=== PATIENT | female | born 1995 | race Caucasian/White ===

== ENCOUNTER 2019-12-19 07:44 | Outpatient (CLI) | payer BC, SELFPAY ==
--- NOTE | 2019-12-19 07:58 | US_ITS ---
WS: [id number] THYROID ULTRASOUND (TI-RADS CRITERIA) History: Thyrotoxicosis, multiple thyroid nodules.. Technique: Ultrasound examination of the thyroid and adjacent soft tissues is performed. FINDINGS: RIGHT thyroid lobe: 6.3 x 1.5 x 2.6 cm. LEFT thyroid lobe: 5.6 x 1.7 x 2.1 cm. Isthmus: 0.2 cm. Estimated total number of nodules greater than or equal to 1 cm: 0 Number of spongiform nodules greater than or equal to 2 cm not described below (TR1): 0 Number of mixed cystic and solid nodules greater than or equal to 1.5 cm not described below (TR2): 0 Mildly heterogeneous thyroid lobes with mild enlargement. There are several tiny colloid cysts. US/US thyroid 33995 Impression: No suspicious thyroid nodules. Mild enlargement. Recommendation:No FNA or follow-up.
== END 2019-12-19 07:45 | disposition home or self-care (01) ==
LOC: RAD 07:53
PROVIDERS: PCP Family Medicine; Visit Provider Nurse Practitioner Family
DX: E04.2 Nontoxic multinodular goiter (principal); E05.90 Thyrotoxicosis, unspecified without thyrotoxic crisis or storm
CPT/HCPCS: 76536

== ENCOUNTER → 2019-12-25 15:47 | Outpatient (BNVA) | payer BC, SELFPAY | PROVIDERS: PCP Family Medicine; Visit Provider Internal Medicine | DX: E04.1 Nontoxic single thyroid nodule (principal); R13.10 Dysphagia, unspecified; R94.6 Abnormal results of thyroid function studies | CPT/HCPCS: 99204 ==

== ENCOUNTER 2019-12-25 16:40 | Outpatient (CLI) | payer BC, SELFPAY ==
[2019-12-25 18:03] LABS: Thyroid Stimulating Hormone 0.31 uIU/mL (0.27-4.20)
[2019-12-27 12:51] LABS: T3 Total 131 ng/dL (76-181)
[2019-12-27 15:51] LABS: Thyroid Peroxidase Antobodies 1 IU/mL (<9)
== END 2019-12-25 16:41 | disposition home or self-care (01) ==
LOC: LAB 16:42
PROVIDERS: PCP Family Medicine; Visit Provider Internal Medicine
DX: E04.1 Nontoxic single thyroid nodule (principal); R94.6 Abnormal results of thyroid function studies
CPT/HCPCS: 83516; 84439; 84443; 84480; 86376

== ENCOUNTER 2021-03-23 17:05 | Outpatient (CLI) | payer BC, SELFPAY ==
[2021-03-23 18:25] LABS: Thyroid Stimulating Hormone 0.32 uIU/mL (0.27-4.20)
[2021-03-23 19:20] LABS: Free T4 Free Thyroxine 1.32 ng/dL (0.82-1.77)
== END 2021-03-23 17:06 | disposition home or self-care (01) ==
LOC: LAB 17:06
PROVIDERS: PCP Family Medicine; Visit Provider Internal Medicine
DX: E04.1 Nontoxic single thyroid nodule (principal); E04.9 Nontoxic goiter, unspecified; R13.10 Dysphagia, unspecified; R94.6 Abnormal results of thyroid function studies
CPT/HCPCS: 84439; 84443

== ENCOUNTER 2021-04-30 12:46 | Outpatient (CLI) | payer BC, SELFPAY ==
--- NOTE | 2021-04-30 12:45 | FL_ITS ---
WS: [id number] MODIFIED BARIUM SWALLOW HISTORY: Difficulty swallowing. FLUOROSCOPY TIME: 2.5 minutes. Modified barium swallow was performed by the speech pathologist. Fluoroscopy was provided with the pa tient in a lateral projection. Multiple food consistencies were provided. Patient swallowed all food consistencies without difficulty. No aspiration or laryngeal penetration. Barium tablet was swallowed without difficulty. FL/FL barium swallow modifd [id number] IMPRESSION: Normal swallowing examination. Please see speech therapist report also for recommendations.
== END 2021-04-30 12:47 | disposition home or self-care (01) ==
LOC: RAD 12:49
PROVIDERS: PCP Family Medicine; Visit Provider Internal Medicine
DX: R13.10 Dysphagia, unspecified (principal); E04.9 Nontoxic goiter, unspecified; R94.6 Abnormal results of thyroid function studies
CPT/HCPCS: 74230; 92611

== ENCOUNTER 2021-06-01 09:48 | Outpatient (CLI) | payer BC, SELFPAY ==
--- NOTE | 2021-06-01 09:55 | CT_ITS ---
WS: [id number] CT neck w con* [id number] REASON FOR EXAM: goiter, checking for changes IV CONTRAST ADMINISTERED: 95 mL of Omnipaque 300. TOTAL EXAM DLP: 297.[address] scans at [facility] use at least one of these dose optimization techniques: automat ed exposure control; mA and/or kV adjustment per patient size (includes targeted exams where dose is matched to clinical indication); or iterative reconstruction. FINDINGS: Normal cervical spine. Normal salivary glands. Multiple small nodes in the anterior and posterior triangle of the neck maximum short diameter of lar gest node 5 mm. Thyroid gland overall is somewhat enlarged. Inhomogeneous attenuation. Several small hypodensities bi laterally. CT/CT neck w con* [id number] IMPRESSION: Small lymph nodes unlikely significant. Stable enlarged thyroid gland. Patient had prior ultrasounds of the thyroid gland in 2019 and 2019. It would a ppear the CT findings are the same as the previous ultrasound findings. There was an unenhanced CT scan of the cervical spine in 2018 which demonstrate d a dense enlarged thyroid gland essentially unchanged on the current enhanced study. To avoid additional radiation exposure 24-year-old patient, and to compare to e stablished baseline, recommend any required follow-up study of the thyroid be done with ultrasound.
[2021-06-01] MEDS: iohexol 300 mg/mL 100 mL Btl IV (10:33)
== END 2021-06-01 09:49 | disposition home or self-care (01) ==
PROVIDERS: PCP Family Medicine; Visit Provider Internal Medicine
DX: E04.9 Nontoxic goiter, unspecified (principal); R13.10 Dysphagia, unspecified; R94.6 Abnormal results of thyroid function studies
CPT/HCPCS: 70491

== ENCOUNTER 2021-08-16 10:56 | Emergency (ER) | payer BC, SELFPAY ==
[2021-08-16 11:02] VITALS: BP 121/76; PULSE 112; RESP 16; TEMP 36.5; O2SAT 98; BMI 27.1
--- NOTE | 2021-08-16 11:15 | ED_ITS ---
HPI - Female Genitourinary General: Chief complaint: Urogenital-Female Stated complaint: cysts Time Seen by Provider: 08/16/21 11:08 History of Present Illness: 26-year-old presents due to labial pain. Has history of Bartholin gland cyst and states this feels the same. This started yesterday. Previously was told that if she gets another cyst to present for surgical excision of the entire Bartholin gland. Denies any abdominal pain or urethral discharge. Denies dysuria fevers or chills. Date of Last Menstrual Period: 11/28/19 Review of Systems Narrative: - CONSTITUTIONAL: Denies weight loss, fever and chills. - HEENT: Denies changes in vision and hearing. - RESPIRATORY: Denies SOB and cough. - CV: Denies palpitations and CP. - GI: Denies abdominal pain, nausea, vomiting and diarrhea. - : As above - MSK: Denies myalgia and joint pain. - SKIN: Denies rash and pruritus. - NEUROLOGICAL: Denies headache, weakness, numbness and syncope. - PSYCHIATRIC: Denies suicidal ideation [facility] ED PFSH: Medical History (Updated 08/16/21 @ 11:46 by Ace Marinelli MD) delivery delivered Depression Surgical History (Updated 06/26/21 @ 15:08 by Daija Gray RN) H/O tubal ligation History of elbow surgery Family History (Updated 06/26/21 @ 15:10 by Daija Gray RN) Father Myocardial infarction Grandfather Stroke maternal Diabetes maternal Grandmother Diabetes maternal Lupus maternal Hyperlipidemia maternal Hypertension maternal Denies family history of Colon cancer Ovarian cancer Clotting disorder Breast cancer Anesthesia complication Bleeding disorder Uterine cancer Thyroid condition Social History (Updated 06/26/21 @ 15:10 by Daija Gray RN) Alcohol intake: never Female Reproductive History: Date of last menstrual period: 11/28/19 Physical Exam Narrative: EXAM NARRATIVE: - GENERAL: Alert and oriented x 3. No acute distress. Well-nourished. - EYES: EOMI. Anicteric. - HENT: Atraumatic, no C-spine tenderness. Moist mucous membranes. No scleral icterus. No cervical lymphadenopathy. - LUNGS: Clear to auscultation bilaterally. No accessory muscle use. Equal lung sounds bilaterally. No respiratory distress. - CARDIOVASCULAR: Regular rate and rhythm. No murmur. No JVD. - ABDOMEN: Soft, non-tender and non-distended. Negative CVA tenderness bilaterally, no rebound or guarding, negative Aguayo sign. No palpable masses. -: Large, 5 cm left Bartholin gland cyst with induration and fluctuance. - EXTREMITIES: No edema. Non-tender. - SKIN: No rashes or lesions. Warm. - NEUROLOGIC: No meningismus or focal neurological deficits. CN II-XII grossly intact. - PSYCHIATRIC: Cooperative. Appropriate mood and affect. Procedures Abscess I/D Site: bartholin's gland Side (if applicable): left Local Anesthetic: lidocaine 1% Amount of anesthesia used (mL): 5 Technique: incised with #11 blade Packing used?: none Complications: pain Course Vital Signs: Vital signs: Vital Signs Temperature 97.7 F 08/16/21 11:02 Pulse Rate 112 H 08/16/21 11:02 Respiratory Rate 16 08/16/21 11:02 Blood Pressure 121/76 08/16/21 11:02 Pulse Oximetry 98 08/16/21 11:02 MDM - Female Medical Decision Making 26-year-old presents due to pelvic pain from left Bartholin gland cyst. Discussed with ELECTRONICS ENGINEER on-call and at this time to recommend incision in the ER and outpatient antibiotics and follow-up but no surgical incision of the entire cyst. I&D performed at bedside. I do not have Word catheter available so attempted to create elliptical incision. Will place on Bactrim. At this time I believe patient would be safe for discharge and outpatient follow-up. Return precautions provided. Plan was reviewed with the patient who expressed understanding. Questions answered. Patient will follow up with ELECTRONICS ENGINEER.. Patient discharged in stable condition. Discharge Plan Discharge Patient Disposition: Home Clinical Impression: Abscess of Bartholin's gland Condition: Stable Prescriptions: New hydrocodone-acetaminophen 5-325 mg tablet 1 tab PO Q8H PRN (Reason: pain) 3 Days Qty: 9 0RF Bactrim DS 800-160 mg tablet 1 tab PO BID 7 Days Qty: 14 0RF Discharge Orders: Discharge ED (Routine); Ordered 08/16/21 Ordered By: Ace Marinelli Referrals: Mike Alejandre MD [Physician] - 1-3 days Gil,ALEXANDER Hernandez [Primary Care Provider] - Patient Instructions: Bartholin's Abscess, Opioid Safety Coding Level of Care Code ED Anesthesiology Physician Assistant for Darrell Hale
== END 2021-08-16 12:07 | disposition home or self-care (01) ==
PROVIDERS: Emergency Provider Emergency Medicine; PCP Nurse Practitioner Family
DX: N75.1 Abscess of Bartholin's gland (principal)
CPT/HCPCS: 56420; 99283

== ENCOUNTER → 2021-09-04 15:02 | Outpatient (BNVA) | payer BC, SELFPAY | PROVIDERS: PCP Nurse Practitioner Family; Visit Provider Obstetrics & Gynecology | DX: N75.0 Cyst of Bartholin's gland (principal) | CPT/HCPCS: 87070; 87077; 87184; 87205 ==

== ENCOUNTER → 2021-09-08 08:33 | Outpatient (BNVA) | payer BC, SELFPAY | PROVIDERS: PCP Nurse Practitioner Family; Visit Provider Obstetrics & Gynecology | DX: Z01.812 Encounter for preprocedural laboratory examination (principal); N75.1 Abscess of Bartholin's gland; N75.0 Cyst of Bartholin's gland | CPT/HCPCS: 80053; 81000; 81025; 85025; 86850; 86900 ==

== ENCOUNTER 2021-09-10 13:00 | Day surgery (SDC) | payer BC, SELFPAY ==
[2021-09-08 09:52] VITALS: BMI 27.7
--- NOTE | 2021-09-08 10:16 | ANES.PREANE2 ---
Pre-Anesthetic Assessment Height/Weight: Height 1.68 m Weight 78.018 kg Operation Date: 09/10/21 15:15 Proposed Procedures p Excision of bartholins gland 24762,N75.1(Not Applicable) - Mike Alejandre MD Familial anesthetic complications: None Was Beta Prosper taken within 24 hours: N/A Was Clonidine taken within 24 hours: N/A Social No alcohol and No tobacco Exam alert, oriented x 3, clear to auscultation bilaterally and regular rate & rhythm Airway Submandibular: within normal limits Cervical ROM: within normal limits Mallampati: Class II Dentition: chipped and full Anesthetic Plan ASA status: 1 Anesthesia: General Medications/Allergies Home Medications Medication Instructions Recorded Confirmed Last Taken Type No Known Home Medications 09/04/21 09/08/21 Unknown History Allergies Allergy/AdvReac Type Severity Reaction Status Date / Time amoxicillin Allergy ALGY-Rash Verified 09/08/21 08:07 [facility] Anesthesia Medical History (Updated 09/08/21 @ 08:34 by Mike Alejandre MD) delivery delivered Depression Surgical History (Updated 09/06/21 @ 17:42 by Lauren Aguila MD) H/O section x2 H/O tubal ligation History of elbow surgery Family History Father Myocardial infarction Grandfather Stroke maternal Diabetes maternal Grandmother Diabetes maternal Lupus maternal Hyperlipidemia maternal Hypertension maternal Denies family history of Colon cancer Ovarian cancer Clotting disorder Breast cancer Anesthesia complication Bleeding disorder Uterine cancer Thyroid condition Social History Alcohol intake: never Female Reproductive History Date of last menstrual period: 08/02/21 Data Anesthesia Cardiac Studies: No Data to Display
[2021-09-10] VITALS (10 sets, daily range): BP systolic 95–129; BP diastolic 55–86; PULSE 70–120; RESP 12–18; TEMP 36.1–36.7; O2SAT 97–100
[2021-09-10 13:33] LABS: OR HCG Qualitative Urine Negative (Negative)
[2021-09-10] MEDS: scopolamine 1.5 Patch 1 PATCH TRANSDERMA (13:37)
[2021-09-10] MEDS: sodium chloride 0.9% 1,000 ML 30 ML IV (14:01)
--- NOTE | 2021-09-10 14:28 | P.ANESUD_ITS ---
Pre-Anesthetic Update Pre-Anesthetic Assessment: Date of Surgery/Procedure: 09/10/21 Preop Alea gnosis: Left Bartholin gland cyst Proposed Procedure: Operation Date: 09/10/21 14:45 Proposed Procedures p Excision of bartholins gland 64669,N75.1(Not Applicable) - Mike Alejandre MD Any changes to Pre-Anesthetic Assessment?: No Last Intake: Intake Last Liquid Date 09/09/21 Last Liquid Time 17:30 Last Solid Date 09/10/21 Last Solid Time 17:30 Vitals: Temperature 98.1 F 09/10/21 13:20 Temperature Source Temporal Artery S can 09/10/21 13:20 Pulse Rate 76 09/10/21 13:20 Respiratory Rate 18 09/10/21 13:20 Blood Pressure 105/72 09/10/21 13:20 Blood Pressure Gilma n 83 09/10/21 13:20 Pulse Oximetry 98 09/10/21 13:20 Oxygen Delivery Me thod 09/10/21 13:25 Exam: Pre-Anes Outpt Exam: alert, oriented x 3, clear to auscultation bilaterally and regular rate & rhythm Cardiac Studies: No Data to Display
[2021-09-10] MEDS: vancomycin 1,000 MG in sodium chloride 0.9% 250 ML 250 MG IV (15:07)
--- NOTE | 2021-09-10 15:29 | W.PM.OPSUD ---
Surgery/Procedure H&P Update DATE OF PROCEDURE: September 10, 2021 DATE H&P PERFORMED: 09/08/21 H&P UPDATE INFORMATION: I have reviewed H&P completed within last 30 days, I have examined patient prior to procedure and No changes to prior documentation PREOP DIAGNOSIS: Left Bartholin gland cyst PLANNED PROCEDURE: Operation Date: 09/10/21 14:45 Proposed Procedures p Excision of bartholins gland 34238,N75.1(Not Applicable) - Mike Alejandre MD
--- NOTE | 2021-09-10 16:36 | PM.OP ---
Operative Report Date of procedure: September 10, 2021 Pre-op diagnosis: Preop Diagnosis Left Bartholin gland cyst Procedure done: Left Bartholin gland excision Specimens removed/disposition: Left Bartholin gland Surgeon: Mike Alejandre MD Estimated blood loss (mL): 50 Complications: None Brief History: Mrs. Lindsey 26-year-old female with a history of recurrent left Bartholin gland cyst and abscess over 4 times.. Procedure: After informed consent, the patient was taken to the operating room where general anesthesia was administered. The patient was placed in dorsal lithothomy position. She was examined under anesthesia and found to have a normal uterus with normal adnexa. After a bimanual examination to determine the extent of the small cyst. She was then prep and draped in normal sterile fashion. The labia were retracted with the Lone Start retractor and the introitus of the Vagina was exposed. An incision was made over the mucosa of the vagina at its junction with the introitus down to the wall of the gland on the left side. The wall of the gland was incised and the content of the cyst was evacuated. A culture was taken. The pearson of the cyst were grasped with Allis clamps. The wall of the cyst were sutured with interrupted 3-0 Vicril to the skin of introitus laterally and to the vaginal of mucosa medially. The patient tolerated the procedure well and instruments and laps count was correct times two.
--- NOTE | 2021-09-10 16:46 | PM.PACU ---
Documented by User: Stevie Curry CRNA 09/10/21 16:46 PACU note Narrative: VSS, Good respiratory effort, report to CHOREOGRAPHY DIRECTOR Exam: awake
[2021-09-10] MEDS: meperidine 50 mg/mL INJ 12.5 MG IVP (16:52)
--- NOTE | 2021-09-10 17:37 | ANE.PACU2 ---
Inpatient post-anesthesia follow up: Airway intact: Yes Vital signs: Temperature 97.0 F Pulse Rate 82 Respiratory Rate 18 Blood Pressure 114/79 Pulse Oximetry 98 Oxygen Delivery Me thod Room Air Oxygen Flow Rate 6 Fraction of Inspir ed Oxygen Hydration adequate: Yes Nausea and vomiting: No Pain level: 2 Mental status: Baseline
== END 2021-09-10 18:00 | disposition home or self-care (01) ==
PROVIDERS: PCP Nurse Practitioner Family; Visit Provider Obstetrics & Gynecology
PROC: (CPT 56740; principal; 2021-09-10 14:35)
DX: N75.0 Cyst of Bartholin's gland (principal)
CPT/HCPCS: 56740; 81025; 84703; 88304; J1100; J1200; J2175; J2405; J2704; J3010; J3370; J7030; J7050